=== PATIENT | male | born 1935 | race Caucasian/White ===

== ENCOUNTER 2025-05-02 14:05 | Inpatient (IN) | payer OTHER, SELFPAY ==
[2025-05-01] VITALS (7 sets, daily range): BP systolic 144–170; BP diastolic 64–109; BMI 27.8; BMI 28.9
--- NOTE | 2025-05-01 08:27 | ED.GENMED ---
History of Present Illness
General
Chief Complaint: Fall
Time Seen by Provider: 05/01/25 08:20
History of Present Illness
History of Present Illness:
89-year-old male with history of hypertension, hyperlipidemia, and dementia presents to the emergency department for evaluation of multiple falls over the past 48 hours. On initial evaluation details of the falls are not immediately known and
patient can provide no history secondary to dementia. He denies any pain or complaints at this time. He appears to be in no distress but does appear grossly pale.
Past History
Past History
ED Past Medical History: HTN, Hypercholesterolemia and Other (Skin cancer, prostate cancer)
Social History
Tobacco: Non-smoker
Review of Systems
Review of Systems
Allergies reviewed?: Yes
All Other Systems: ROS reviewed and negative except as documented in HPI and ROS
Phy Exam
Physical Exam
Physical Exam:
GEN: Well appearing, NAD, WDWN, generally past
HEENT: Oral mucosa moist, no scleral icterus
Cardiac: Regular rate and rhythm, no murmur
Lung: No respiratory distress, no tachypnea, lungs clear to auscultation bilaterally
MSK: No gross deformity or injuries
Skin: Good color, no pallor or jaundice, no rashes
Neuro: Alert, pleasantly confused, moves all extremities freely, follows commands
Psych: Calm, cooperative
Course
Orders/Labs/Results
Orders:
Orders
05/01/25 08:22
EKG [Electrocardiogram (*1)] Urgent
Reason for Study: Abnormal EKG
05/01/25 08:23
EKG- Treatment ONCE
05/01/25 08:25
CT Head W/o Iv Contrast Urgent
Comment:
Reason For Exam: frequent falls, on Eliquis
05/01/25 08:29
Type And Crossmatch [Type+Screen] Urgent
Complete Blood Count/With Diff Urgent
Comprehensive Metabolic Panel Urgent
05/01/25 09:27
Urinalysis Reflex To Culture Urgent
Date Specimen was Collected: 05/01/25
Time Specimen was Collected: 09:07
Urine Microscopic Reflex Cult Urgent
Urine Culture Urgent
MAGGIE Source: U
Specimen Description:
Date Specimen was Collected: 05/01/25
Time Specimen was Collected: 09:07
05/01/25 10:53
CefTRIAXone [Rocephin] 1,000 mg IV NOW STA
05/01/25 13:13
Admit/Transfer Patient As Directed
Co-Sign Provider:
Level of Care: Observation services
Assign to:: Medical/Surgical
Physician / Group: Pau Khan
Diagnosis: Ambulatory Dysfunction Dementia possible UTI
05/01/25 13:14
PRN Pain Medication Management As Directed
May give lesser potent ordered pain med per pt: Yes
preference::
Protocol:: Medication orders for pain may be administered in a
manner that supports deferring to patient preference
when the pt is:
- Requesting an ordered lesser potent pain medication.
Least to most potent pain medications are defined
as: acetaminophen < NSAID < tramadol < opioids
(morphine, oxycodone, hydromorphone).
- Requesting a lesser dose of the same medication IF
ORDERED.
- Requesting a less intrusive route of administration
if both routes are prescribed by the provider (PO <
IV).
05/01/25 13:18
Code Status As Directed
Resuscitation Status: Do not resuscitate
Reached after discussion with pt or family/Healthcare POA: Yes
DNR Bracelet Application ONCE
Abnormal Lab Results
05/01/25 05/01/25
08:29 09:27
RBC 4.08 L 10^6/uL
(4.70-6.10)
MCV 96.8 H fL
(80.0-94.0)
MCH 32.4 H pg
(27.0-31.0)
Absolute Lymphs (auto) 1.1 L 10^3/uL
(1.2-3.4)
Absolute Monos (auto) 0.8 H 10^3/uL
(0.1-0.6)
Lymphocytes % 14.0 L %
(20.5-51.1)
Monocytes % 9.5 H %
(1.7-9.3)
BUN 21 H mg/dl
(9-20)
Glucose 115 H mg/dl
(70-99)
Urine Nitrite (Reflex) Positive A
(Negative)
Leukocyte Esterase Rfl 1+ A
(Negative)
Urine Bacteria (Reflex) Moderate A
(Negative)
Urine Albumin (Reflex) 1+ A
(Neg - Trace)
05/01/25 08:29
05/01/25 08:29
Vital Signs
Initial and Last Documented VS:
Initial Vital Signs
Temp Pulse Resp BP Pulse Ox
98.3 F 64 95 170/84 93
05/01/25 08:22 05/01/25 08:22 05/01/25 08:22 05/01/25 08:22 05/01/25 08:22
Last Documented Vital Signs
Temp Pulse Resp BP Pulse Ox
98.3 F 63 16 168/64 94
05/01/25 08:22 05/01/25 13:33 05/01/25 13:33 05/01/25 13:00 05/01/25 12:00
MDM/Problems Addressed
MDM/Problems Addressed:
Patient is profoundly weak and has difficulty rising from a seated position and difficulty walking without assistance. He does have nitrite positive urine with large bacteria suggesting UTI despite lack of leukocytes. Will treat empirically to the
hospitalist service for for further management
Comment
Comment:
EKG independently interpreted by me shows normal sinus rhythm at a rate of 60 with diffuse flattening, new compared to EKG from 2017
*Pulse Oximetry
Patient hypoxic: no
*Critical Care Note
Total Time (30-74mins, 75-104mins- exclusive of procedures): Not Applicable
ED Attending Note
-
Portions of this chart may have been created with voice recognition software.� Occasional wrong word or��sound alike� substitutions may have occurred due to the inherent limitations of voice recognition software.
Discharge Plan
Departure
Patient Disposition: Admit
Date of Disposition: 05/01/25
Time of Disposition: 11:02
Admit to: Med/Surg
Presentation/result/management discussed w/ accepting MD/DO: Hospitalist
Discharge Problem:
Urinary tract infection, Generalized weakness
Interventions
Interventions:
*Risk Screen - Suicide Last Done: 05/01/25 11:11
*General Assessment Last Done: 05/01/25 08:31
*Neglect/Abuse Screening Last Done: 05/01/25 11:11
*ED COVID-19 Vaccine History Last Done: 05/01/25 11:10
[2025-05-01 08:58] LABS: ALT (SGPT) 24 U/L (0-50); AST (SGOT) 31 U/L (17-59); Albumin 4.2 g/dl (3.5-5.0); Alkaline Phosphatase 68 U/L (38-126); Blood Urea Nitrogen 21 mg/dl (9-20); Calcium 9.9 mg/dl (8.4-10.2); Carbon Dioxide 29 mmol/L (22-30); Chloride 106 mmol/L (98-107); Estimated Creatinine Clearance 48 ml/min; Glucose 115 mg/dl (70-99); Potassium 4.3 mmol/L (3.5-5.1); Sodium 140 mmol/L (135-145); Total Protein 7.2 g/dl (6.3-8.2); eGFR > 60.00
[2025-05-01 08:59] LABS: Hematocrit 39.5 % (39.0-52.0); Hemoglobin 13.2 g/dL (13.0-18.0); Mean Corp Hgb Conc. 33.4 g/dL (33.0-37.0); Mean Corpuscular Volume 96.8 fL (80.0-94.0); Nucleated Red Blood Cells % 0 % (-); Platelet Count 203 10^3/uL (130-400); Red Cell Dist. Width 12.9 % (11.5-14.5)
[2025-05-01 09:53] LABS: Urine Character Cloudy (Clear)
[2025-05-01 10:50] LABS: Urine Red Blood Cell 0-2 /HPF (0-2)
[2025-05-01] MEDS: ROCEPHIN 1000 MG IV (11:05)
--- NOTE | 2025-05-01 11:05 | HPS.HSE ---
Family Physician
-
Family Physician: Sher Ortega
Chief Complaint
-
weakness
History of Present Illness
89M HTN HLD Dementia p/w ambulatory dysfunction approx 2 falls last 48h, unwitnessed, found on the floor by . Prompted to visit ED when patient was unable to get up. Denied head trauma. AOx2 disoriented to baseline, baseline as per patient's
, diagnosed with dementia approx 5 [address] ago[address] not drive. Denies fever chills sob constipation diarrhea pain. CT Head noted no acute abn's. VSS on room air. Urinalysis suggestive of UTI though patient denies urinary symptoms. Patient
drinks a can of beer daily and has never required treatment for Alcohol withdrawal as per .
Medical History
Past Medical History
Past Medical History: Reports Other (as above)
Past Surgical History: Reports Other (as above)
Social History
Tobacco: Non-smoker
Alcohol: Daily
Drug: None
Personal:
Living: With Family
Employment: Retired
Family History
Family History: Not pertinent (reviewed)
Allergies / Home Medications
Allergies reflects when Allergies were last updated in [email or web address].
Home Medications with original date entered in [email or web address]
Allergy/Medication List:
Allergies
Allergy/AdvReac Type Severity Reaction Status Date / Time
[place] nut Allergy swelling/hi Verified 05/01/25 16:54
ves
Home Medications
apixaban 5 mg tablet (Eliquis) 5 mg PO BID Blood Clot Prevention/Tx 05/01/25
ascorbic acid (vitamin C) 500 mg tablet 500 mg PO DAILY Supplement 05/01/25
calcium carbonate 500 mg PO DAILY Supplement 05/01/25
cholecalciferol (vitamin D3) 25 mcg (1,000 unit) tablet 25 mcg PO DAILY Supplement 05/01/25
coenzyme Q10 100 mg tablet 100 mg PO DAILY Supplement 05/01/25
cyanocobalamin (vitamin B-12) 500 mcg tablet 500 mcg PO DAILY Supplement 05/01/25
lovastatin 40 mg tablet 40 mg PO QPM High Cholesterol 05/01/25
lutein 20 mg tablet 20 mg PO DAILY Supplement 05/01/25
magnesium oxide 500 mg PO HSPRN PRN sleep 05/01/25
memantine 10 mg tablet 10 mg PO BID Neurological Condition 05/01/25
therapeutic multivitamin 1 tab PO DAILY Supplement 05/01/25
turmeric 500 mg-black pepper extract 3 mg capsule 1 cap PO DAILY Supplement 05/01/25
vitamin B complex 1 tab PO DAILY Supplement 05/01/25
Review of Systems
-
A 12 point ROS was completed and negative except as noted: Yes
Constitutional: Reports Other (as below)
Physical Exam
Vital Signs
Vital Signs
Temp Pulse Resp BP Pulse Ox
98.3 F 61 17 170/84 94
05/01/25 08:22 05/01/25 08:30 05/01/25 08:30 05/01/25 08:23 05/01/25 08:30
Physical Exam
General: Other (as below)
Laboratory Results
-
05/01/25 08:29
05/01/25 08:29
Laboratory Results
Total Bilirubin 0.6 mg/dl (0.2-1.3) 05/01/25 08:29
AST 31 U/L (17-59) 05/01/25 08:29
ALT 24 U/L (0-50) 05/01/25 08:29
Alkaline Phosphatase 68 U/L (38-126) 05/01/25 08:29
Impression/Plan
-
ROS
General: Denies fever chills night sweats unexpected weight loss
Neuro: Denies seizure shaking loss of consciousness dizziness vertigo
Psych: denies depression hallucinations confusion manic episodes
Endocrine: Denies polyuria polydipsia polyphagia heat/cold intolerance
HEENT: Denies blindness visual disturbances epistaxis
Pulmonary: denies coughing hemoptysis sneezing sob dyspnea on exertion
Cardiovascular: denies chest pain palpitations leg swelling
Hematology: denies signs symptoms of anemia easy bruising/bleeding
Gastrointestinal: denies nausea vomiting diarrhea constipation hematemesis hematochezia melena
Genito-Urinary: denies retention incontinence dysuria
Musculoskeletal: denies joint pain reports weakness unable to stand
Dermatology: denies rash laceration bruising
Physical Exam
General: No pallor, cyanosis, or jaundice.
HEENT: Throat clear. PERRLA EOMI Normocephalic atraumatic Hard of Hearing
NECK: Supple. No JVD Carotid Bruits
RESPIRATORY: Lungs clear to auscultation. No crackles wheezes stridor
CVS: S1, S2 normal. RRR. No murmur, rub or gallop.
ABDOMEN: Soft, non-tender. No distension. BS+/normal.
EXTREMITIES: No peripheral cyanosis or edema. Strength 4/5 lower ext's b/l, Lower ext's equal length able to lift legs off bed without issues/pain
SCHOOL LABORATORY TECHNICIAN: AOx2 disoriented to time
IMPRESSION:
89M pAfib Eliquis HTN HLD Dementia Daily ETOH use (1 can of beer per day) no hx withdrawal AOx2 baseline p/w progressive ambulatory dysfunction 48H w falls, unwitnessed, denies head trauma, prompted to visit ED when patient was unable to get up on
his own. Urinalysis suggests UTI though patient denies urinary symptoms.
PLAN:
#Progressive Ambulatory Dysfunction/Falls
#Possible UTI
Med/surg observation
cont ceftriaxone for possible UTI
follow urine culture
PT/OT eval
orthostatic vitals
Fall precautions
#pAfib
Currently NSR
not on rate control medication at home
hold home Eliquis for now given falls
#Daily ETOH use, no hx ETOH withdrawal
monitor MSAS scores for now, caution when considering using Ativan given known Dementia
#HTN
not on antihypertensives at home
monitor BP for now
with dementia and falls would not treat aggressively
#HLD
cont home statin
#Dementia
cont home Memantine
Seroquel HSPRN agitation/insomnia
DVT ppx Lovenox
DNR
Discussed with patient, patient's Martha, and patient's daughter Abi
I spent a total of 75 minutes with the patient or on the floor. More than 50% of this time involved counseling and coordination of care.
--- NOTE | 2025-05-01 14:05 | CM ---
CM reviewed chart and met with pt and family bedside in ED. Lives with his in 1 story home, 3 NONA.
Independent in ADLs, personal care and ambulation at baseline. has been encouraging him to use walker but still ambulates independently. Also has shower chair.
GREGORY reviewed and signed.
Confirms prescription coverage.
PCP: Sher Ortega
Pharmacy: [facility]
No hx VN or SNF
CM will continue to follow for all discharge planning needs.
[2025-05-01] MEDS: NON-FORMULARY ITEM 40 MG PO (18:12)
[2025-05-01] MEDS: LOVENOX 40 MG SC (18:13)
[2025-05-01] MEDS: NAMENDA 10 MG PO (20:39)
[2025-05-02] VITALS (8 sets, daily range): BP systolic 144–179; BP diastolic 63–114; PULSE 57–80; O2SAT 92–93
--- NOTE | 2025-05-02 07:04 | W.PN.HOSP.TC ---
Today's Communication/Plan
-
IVF bolus, abd binder, TEDs
cont abx, follow urine culture
PT/OT
discharge planning SNF rehab
Assessment / Plan
Assessment / Plan
Physical Exam
General: No pallor, cyanosis, or jaundice.
HEENT: Throat clear. PERRLA EOMI Normocephalic atraumatic Hard of Hearing
NECK: Supple. No JVD Carotid Bruits
RESPIRATORY: Lungs clear to auscultation. No crackles wheezes stridor
CVS: S1, S2 normal. RRR. No murmur, rub or gallop.
ABDOMEN: Soft, non-tender. No distension. BS+/normal.
EXTREMITIES: No peripheral cyanosis or edema. Strength 4/5 lower ext's b/l, Lower ext's equal length able to lift legs off bed without issues/pain
DIRECTOR SCRIPT: AOx2 disoriented to time
IMPRESSION:
89M pAfib Eliquis HTN HLD Dementia Daily ETOH use (1 can of beer per day) no hx withdrawal AOx2 baseline p/w progressive ambulatory dysfunction 48H w falls, unwitnessed, denies head trauma, prompted to visit ED when patient was unable to get up on
his own. Urinalysis suggests UTI though patient denies urinary symptoms.
PLAN:
#Progressive Ambulatory Dysfunction/Falls
#Possible UTI
#Symptomatic Orthostatic Hypotension
Med/surg observation
cont ceftriaxone for possible UTI
follow urine culture
PT/OT eval appreciated SNF rehab
orthostatic vitals
Abd Binder, TEDs, IVF bolus
Fall precautions
#pAfib
Currently NSR
not on rate control medication at home
hold home Eliquis for now given falls
#Daily ETOH use, no hx ETOH withdrawal
monitor MSAS scores for now, caution when considering using Ativan given known Dementia
ETOH cessation/abstinence advised
#HTN
low dose amlodipine started 2.5 mg daily
with dementia, symptomatic orthostatic hypotension, falls would not treat aggressively
#HLD
cont home statin
#Dementia
cont home Memantine
Seroquel HSPRN agitation/insomnia
DVT ppx Lovenox
DNR
Discussed with patient, patient's Martha, patient's daughter Abi, and patient's family friend Elda
I spent a total of 45 minutes with the patient or on the floor. More than 50% of this time involved counseling and coordination of care.
Anticipated Discharge: 24 - 48 hours
Subjective/Interval History
-
Date of Service: May 02, 2025
symptomatic orthostatic hypotension noted during PT/OT evaluations. Patient otherwise no acute distress at rest sitting up comfortably in bed. Martha, daughter Abi, and family friend Elda present during evaluation.
Objective Data
-
Labs:
Laboratory Results
05/02/25
06:50
WBC Pending
Hgb Pending
Hct Pending
Plt Count Pending
Sodium Pending
Potassium Pending
Chloride Pending
Carbon Dioxide Pending
BUN Pending
Creatinine Pending
Glucose Pending
Calcium Pending
Vital Signs:
Vital Signs
Temp Pulse Resp BP Pulse Ox
98.3 F 59 18 145/73 95
05/01/25 23:00 05/01/25 23:00 05/01/25 23:00 05/01/25 23:00 05/01/25 23:00
I&O
05/01/25 05/02/25 05/03/25
06:59 06:59 06:59
Intake Total 480 / 480
Balance 480 / 480
[2025-05-02 07:31] LABS: Hematocrit 36.6 % (39.0-52.0); Hemoglobin 12.4 g/dL (13.0-18.0); Mean Corp Hgb Conc. 33.9 g/dL (33.0-37.0); Mean Corpuscular Volume 95.3 fL (80.0-94.0); Platelet Count 188 10^3/uL (130-400); Red Cell Dist. Width 12.9 % (11.5-14.5)
[2025-05-02 07:59] LABS: Blood Urea Nitrogen 19 mg/dl (9-20); Calcium 8.9 mg/dl (8.4-10.2); Carbon Dioxide 28 mmol/L (22-30); Chloride 108 mmol/L (98-107); Estimated Creatinine Clearance 45 ml/min; Glucose 112 mg/dl (70-99); Magnesium 2.1 mg/dl (1.6-2.3); Potassium 4.4 mmol/L (3.5-5.1); Sodium 139 mmol/L (135-145); eGFR > 60.00
[2025-05-02 08:11] LABS: Vitamin D, 25-OH*** 47.8 ng/mL (30-80)
[2025-05-02] MEDS: VITAMIN B-12 500 MCG PO (08:22)
[2025-05-02] MEDS: THERAGRAN 1 TABLET PO (08:22)
[2025-05-02] MEDS: NAMENDA 10 MG PO ×2 (08:22→20:11)
[2025-05-02] MEDS: VITAMIN C 500 MG PO (08:22)
[2025-05-02] MEDS: VITAMIN D3 (cholecalciferol) 25 MCG PO (08:22)
[2025-05-02] MEDS: OSCAL CAL 500 500 MG PO (08:22)
[2025-05-02] MEDS: STERILE WATER FOR INJECTION 10 ML IV (10:33)
[2025-05-02] MEDS: ROCEPHIN 1000 MG IV (10:33)
--- NOTE | 2025-05-02 11:25 | CM ---
CM met with Kaveh, his , and daughter this AM to discuss discharge planning options.
Kaveh has dementia with a very happy demeanor. He has been falling quite often at home; son-in-law has to come to the home to pick him up off the floor and/or the toilet quite often.
Family is interested in admission to [facility] with likely plan for LTC. Advised family that application will likely be required. Daughter will go to [facility] to obtain application.
Second option is [facility].
Plan: CM to make referrals to requested SNF facilities.
[2025-05-02] MEDS: NORVASC 2.5 MG PO (12:27)
[2025-05-02] MEDS: NSS 500 IV (12:27)
[2025-05-02] MEDS: LOVENOX 40 MG SC (17:31)
[2025-05-02] MEDS: NON-FORMULARY ITEM 40 MG PO (17:32)
[2025-05-02] MEDS: SEROQUEL 25 MG PO (19:51)
[2025-05-03 03:56] VITALS: BP 187/89
--- NOTE | 2025-05-03 06:12 | PTCARENOTE ---
Patient restless overnight. Continued removal of quality assurance monitor despite repeated education regarding need for for monitoring. Frequent requests for ambulation to bathroom for urination. Bladder scan performed secondary to frequent urination,
results in 320ml. Patient offered Tylenol for expressed pain, medication was declined by patient. Appears to rest comfortably after approximately 0400am.
--- NOTE | 2025-05-03 06:59 | W.PN.HOSP.TC ---
Today's Communication/Plan
-
PT/OT
blood pressure control
discharge planning SNF rehab
Assessment / Plan
Assessment / Plan
Physical Exam
General: No pallor, cyanosis, or jaundice.
HEENT: Throat clear. PERRLA EOMI Normocephalic atraumatic Hard of Hearing
NECK: Supple. No JVD Carotid Bruits
RESPIRATORY: Lungs clear to auscultation. No crackles wheezes stridor
CVS: S1, S2 normal. RRR. No murmur, rub or gallop.
ABDOMEN: Soft, non-tender. No distension. BS+/normal.
EXTREMITIES: No peripheral cyanosis or edema. Strength 4/5 lower ext's b/l, Lower ext's equal length able to lift legs off bed without issues/pain
CHIEF UNIT FORESTER: AOx2 disoriented to time
IMPRESSION:
89M pAfib Eliquis HTN HLD Dementia Daily ETOH use (1 can of beer per day) no hx withdrawal AOx2 baseline p/w progressive ambulatory dysfunction 48H w falls, unwitnessed, denies head trauma, prompted to visit ED when patient was unable to get up on
his own. Urinalysis suggests UTI though patient denies urinary symptoms.
PLAN:
#Progressive Ambulatory Dysfunction/Falls
#Possible UTI
#Symptomatic Orthostatic Hypotension
Med/surg observation
cont ceftriaxone for possible UTI
follow urine culture
PT/OT eval appreciated SNF rehab
orthostatic vitals
Abd Binder, TEDs, IVF bolus
Fall precautions
#pAfib
Currently NSR
not on rate control medication at home
hold home Eliquis for now given falls
#Daily ETOH use, no hx ETOH withdrawal
monitor MSAS scores for now, caution when considering using Ativan given known Dementia
ETOH cessation/abstinence advised
#HTN
low dose amlodipine started 2.5 mg daily
with dementia, symptomatic orthostatic hypotension, falls would not treat aggressively
#HLD
cont home statin
#Dementia
cont home Memantine
Seroquel HSPRN agitation/insomnia
DVT ppx Lovenox
DNR
Discussed with patient, patient's Martha, patient's daughter Abi, and patient's family friend Elda
I spent a total of 45 minutes with the patient or on the floor. More than 50% of this time involved counseling and coordination of care.
Anticipated Discharge: 24 - 48 hours
Subjective/Interval History
-
Date of Service: May 03, 2025
No acute distress, overall reports feeling well, denies new acute issues at this time. Martha present during evaluation.
Objective Data
-
Labs:
Laboratory Results
05/03/25
06:55
WBC Pending
Hgb Pending
Hct Pending
Plt Count Pending
Sodium Pending
Potassium Pending
Chloride Pending
Carbon Dioxide Pending
BUN Pending
Creatinine Pending
Glucose Pending
Calcium Pending
Vital Signs:
Vital Signs
Temp Pulse Resp BP Pulse Ox
97.4 F 57 14 187/89 96
05/03/25 03:56 05/03/25 03:56 05/03/25 03:56 05/03/25 03:56 05/03/25 03:56
I&O
05/01/25 05/02/25 05/03/25
06:59 06:59 06:59
Intake Total 480 / 480 940 / 940
Output Total 1075 / 1075
Balance 480 / 480 -135 / -135
[2025-05-03 07:31] LABS: Hematocrit 38.0 % (39.0-52.0); Hemoglobin 12.8 g/dL (13.0-18.0); Mean Corp Hgb Conc. 33.7 g/dL (33.0-37.0); Mean Corpuscular Volume 95.7 fL (80.0-94.0); Platelet Count 204 10^3/uL (130-400); Red Cell Dist. Width 12.9 % (11.5-14.5)
[2025-05-03 08:16] LABS: Blood Urea Nitrogen 18 mg/dl (9-20); Calcium 9.5 mg/dl (8.4-10.2); Carbon Dioxide 27 mmol/L (22-30); Chloride 110 mmol/L (98-107); Estimated Creatinine Clearance 49 ml/min; Glucose 114 mg/dl (70-99); Magnesium 2.2 mg/dl (1.6-2.3); Potassium 4.4 mmol/L (3.5-5.1); Sodium 141 mmol/L (135-145); eGFR > 60.00
[2025-05-03] MEDS: VITAMIN D3 (cholecalciferol) 25 MCG PO (08:51)
[2025-05-03] MEDS: NAMENDA 10 MG PO ×2 (08:51→19:29)
[2025-05-03] MEDS: THERAGRAN 1 TABLET PO (08:51)
[2025-05-03] MEDS: OSCAL CAL 500 500 MG PO (08:52)
[2025-05-03] MEDS: NORVASC 2.5 MG PO (08:52)
[2025-05-03] MEDS: VITAMIN C 500 MG PO (08:52)
[2025-05-03] MEDS: VITAMIN B-12 500 MCG PO (08:52)
[2025-05-03 08:54] VITALS: BP 144/61
--- NOTE | 2025-05-03 09:46 | CM ---
Addendum entered by Daya Yip 05/03/25 14:54:
Spouse aware of beds available. no decision made yet. Spouse is aware anticipated dc is tomorrow and insurance authorization needs to be completed.
Addendum entered by Daya Yip 05/03/25 14:28:
TC to patient spouse re bed availability, no VM to leave a message. will try again later.
Addendum entered by Daya Yip 05/03/25 10:34:
[facility] also added per request.
Addendum entered by Daya Yip 05/03/25 10:12:
Spoke with spouse bedside, patient sleeping.
Additional referrals sent to [facility] and [facility] for STR. Plan is not for LTC at this time
Original Note:
Spoke with Bruce from [facility], no short term rehab beds available. Patient may be appropriate for Memory care unit, would need to fill out application.
Left VN karli Gordon at [facility], await TCB.
[2025-05-03] MEDS: ROCEPHIN 1000 MG IV (10:56)
[2025-05-03] MEDS: STERILE WATER FOR INJECTION 10 ML IV (10:56)
[2025-05-03 11:14] VITALS: BP 169/81
[2025-05-03 15:33] LABS: Folate > 20.0 ng/ml (2.76-20); Vitamin B12 > 1000 pg/ml (239-931)
[2025-05-03 16:00] VITALS: BP 177/71
[2025-05-03] MEDS: LOVENOX 40 MG SC (17:20)
[2025-05-03] MEDS: NON-FORMULARY ITEM 1 MG PO (17:21)
[2025-05-03] MEDS: SEROQUEL 25 MG PO (19:29)
[2025-05-03 23:39] VITALS: BP 156/76
[2025-05-04 06:49] LABS: Hematocrit 37.6 % (39.0-52.0); Hemoglobin 12.8 g/dL (13.0-18.0); Mean Corp Hgb Conc. 34.0 g/dL (33.0-37.0); Mean Corpuscular Volume 95.2 fL (80.0-94.0); Platelet Count 201 10^3/uL (130-400); Red Cell Dist. Width 13.1 % (11.5-14.5)
[2025-05-04 07:13] LABS: Blood Urea Nitrogen 17 mg/dl (9-20); Calcium 9.0 mg/dl (8.4-10.2); Carbon Dioxide 26 mmol/L (22-30); Chloride 109 mmol/L (98-107); Estimated Creatinine Clearance 49 ml/min; Glucose 108 mg/dl (70-99); Magnesium 2.0 mg/dl (1.6-2.3); Potassium 4.2 mmol/L (3.5-5.1); Sodium 139 mmol/L (135-145); eGFR > 60.00
--- NOTE | 2025-05-04 07:15 | W.PN.HOSP.TC ---
Today's Communication/Plan
-
monitor orthostatic vitals
PT/OT
dc abx, UTI ruled out
dc MSAS monitoring, no significant withdrawal symptoms noted
Discharge planning SNF rehab
Assessment / Plan
Assessment / Plan
Physical Exam
General: No pallor, cyanosis, or jaundice.
HEENT: Throat clear. PERRLA EOMI Normocephalic atraumatic Hard of Hearing
NECK: Supple. No JVD Carotid Bruits
RESPIRATORY: Lungs clear to auscultation. No crackles wheezes stridor
CVS: S1, S2 normal. RRR. No murmur, rub or gallop.
ABDOMEN: Soft, non-tender. No distension. BS+/normal.
EXTREMITIES: No peripheral cyanosis or edema. Strength 4/5 lower ext's b/l, Lower ext's equal length able to lift legs off bed without issues/pain
ENERGY PROJECTS LEAD: AOx2 disoriented to time
IMPRESSION:
89M pAfib Eliquis HTN HLD Dementia Daily ETOH use (1 can of beer per day) no hx withdrawal AOx2 baseline p/w progressive ambulatory dysfunction 48H w falls, unwitnessed, denies head trauma, prompted to visit ED when patient was unable to get up on
his own. Urinalysis suggests UTI though patient denies urinary symptoms.
PLAN:
#Progressive Ambulatory Dysfunction/Falls
#Possible UTI ruled out
#Symptomatic Orthostatic Hypotension
Med/surg admit d/t persistent symptomatic orthostatic hypotension
urine culture no significant growth noted, empiric ceftriaxone discontinued
PT/OT eval appreciated SNF rehab
orthostatic vitals
Abd Binder, TEDs, IVF bolus prn
Fall precautions
Orthostatic hypotension persists, physical deconditioning contributing
#pAfib
Currently NSR
not on rate control medication at home
hold home Eliquis for now given falls
#Daily ETOH use, no hx ETOH withdrawal
No significant withdrawal noted during stay, ok to dc MSAS protocol
ETOH cessation/abstinence advised
#HTN
low dose amlodipine started 2.5 mg daily titrated up to 5 mg daily
with dementia, symptomatic orthostatic hypotension, falls, would not treat HTN aggressively
#HLD
cont home statin
#Dementia
cont home Memantine
Seroquel HSPRN agitation/insomnia
DVT ppx Lovenox
DNR
Discussed with patient, patient's Martha, patient's daughter Abi, and patient's family friend Elda
I spent a total of 45 minutes with the patient or on the floor. More than 50% of this time involved counseling and coordination of care.
Anticipated Discharge: Within 24 hours
Subjective/Interval History
-
Date of Service: May 04, 2025
No acute distress, sitting up comfortably in chair, orthostatic hypotension persists with associate dizziness lightheadedness. Resting blood pressure control otherwise improved at this time.
Objective Data
-
Labs:
Laboratory Results
05/04/25
06:13
WBC 5.4
Hgb 12.8 L
Hct 37.6 L
Plt Count 201
Sodium 139
Potassium 4.2
Chloride 109 H
Carbon Dioxide 26
BUN 17
Creatinine 1.0
Glucose 108 H
Calcium 9.0
Vital Signs:
Vital Signs
Temp Pulse Resp BP Pulse Ox
97.8 F 62 16 156/76 95
05/03/25 23:39 05/03/25 23:39 05/03/25 23:39 05/03/25 23:39 05/03/25 23:39
I&O
05/03/25 05/04/25 05/05/25
06:59 06:59 06:59
Intake Total 940 / 940
Output Total 1075 / 1075 375 / 375
Balance -135 / -135 -375 / -375
[2025-05-04 07:30] VITALS: BP 154/59
--- NOTE | 2025-05-04 08:45 | CM ---
TC from spouse re concerns patient is not ready for d/c. She spoke with her Friend who is a nurse and they do not feel the patient has been up walking enough to be transferred from the hospital. Spouse and friend would like to meet with CM in room
at 10:30 am. if available. This CM reached out to spouse via phone and explained the reason to be transferred to skilled rehab is to increase patients ability to ambulate and patient would receive therapy more frequently in a skilled facility. CM
explained patient has not yet been d/c, but it is anticipated he shoud be ready today ir medically cleared. If agreeable to [facility], auth will need to be initiated. CM also discussed if she does not feel the patient is medically sable for d/c, she
would need to discuss that with the MD. CM covering today updated.
Spouse, Martha cell#[phone]
[2025-05-04] MEDS: VITAMIN D3 (cholecalciferol) 25 MCG PO (09:22)
[2025-05-04] MEDS: THERAGRAN 1 TABLET PO (09:22)
[2025-05-04] MEDS: VITAMIN C 500 MG PO (09:22)
[2025-05-04] MEDS: NAMENDA 10 MG PO ×2 (09:22→20:45)
[2025-05-04] MEDS: NORVASC 5 MG PO (09:22)
[2025-05-04] MEDS: OSCAL CAL 500 500 MG PO (09:23)
[2025-05-04] MEDS: VITAMIN B-12 500 MCG PO (09:23)
[2025-05-04] MEDS: STERILE WATER FOR INJECTION 10 ML IV (09:32)
[2025-05-04] MEDS: ROCEPHIN 1000 MG IV (09:32)
[2025-05-04 09:46] VITALS: BP 101/68; BP 116/67; BP 133/66; BP 146/72; PULSE 66; PULSE 67; PULSE 87; O2SAT 94
--- NOTE | 2025-05-04 11:42 | CM ---
Addendum entered by Daya Yip 05/04/25 16:48:
Insurance auth initiated- Approved skilled rehab at [facility]
Approved 5 days skilled rehab
start date 05/05/25, NRD 05/09/25
Auth# [id number]
Updates to P# [phone]
[facility]ulance with [facility] auth# [id number]
Addendum entered by Daya Yip 05/04/25 13:56:
Per MD, will hold d/c for today.
[facility] liaison updated.
Original Note:
Patient accepted at [facility] for skilled rehab, needs insurance auth.
Spoke with family bedside, they wish to speak with MD.
IMM completed.
Await updated therapy notes.
--- NOTE | 2025-05-04 11:58 | PN.CDI ---
CDI
- -
CDI:
Physician Documentation Request
Admit Date: 05/02/25 14:05
Dear Doctor Bill,
Progress note states possible UTI, cont Ceftriaxone.
Ceftriaxone note given 05/04.
Urine culture states 'mixed nat present, probable contamination'
Please clarify the following:
____ - UTI is present
____ - UTI was ruled out
____ - UTI is still a likely, suspected, probable diagnosis
____ - Other
Use of terms such as suspected, likely, concern for, or probable (associated with a specific diagnosis that is being evaluated, monitored, or treated as if it exists) are acceptable and can be coded in the inpatient setting, when documented at the
time of discharge.
Thank you,
Clare James RN, BSN
CDI Specialist
tiger text
Please use your independent medical judgment in providing your response.
[2025-05-04] MEDS: NSS 500 IV (11:59)
[2025-05-04 13:02] VITALS: BP 140/59; BP 148/68; PULSE 66; O2SAT 95
[2025-05-04 15:25] VITALS: BP 157/71
[2025-05-04] MEDS: LOVENOX 40 MG SC (18:30)
[2025-05-04] MEDS: NON-FORMULARY ITEM 40 MG PO (18:31)
[2025-05-04] MEDS: SEROQUEL 25 MG PO (20:45)
[2025-05-04 23:00] VITALS: BP 177/84
[2025-05-05 07:00] VITALS: BP 163/74
--- NOTE | 2025-05-05 07:08 | W.PN.HOSP.TC ---
Today's Communication/Plan
-
Hold discharge for now given symptomatic orthostatic hypotension persists
Amlodipine and prn seroquel discontinued (both possibly contributing to orthostatic hypotension)
1:1 prn, avoid restraints, avoid sedatives as possible (all sedatives may exaberate orthostatic hypotension)
Assessment / Plan
Assessment / Plan
Physical Exam
General: No pallor, cyanosis, or jaundice.
HEENT: Throat clear. PERRLA EOMI Normocephalic atraumatic Hard of Hearing
NECK: Supple. No JVD Carotid Bruits
RESPIRATORY: Lungs clear to auscultation. No crackles wheezes stridor
CVS: S1, S2 normal. RRR. No murmur, rub or gallop.
ABDOMEN: Soft, non-tender. No distension. BS+/normal.
EXTREMITIES: No peripheral cyanosis or edema. Strength 4/5 lower ext's b/l, Lower ext's equal length able to lift legs off bed without issues/pain
VISUAL MERCHANDISING SPECIALIST: AOx2 disoriented to time
IMPRESSION:
89M pAfib Eliquis HTN HLD Dementia Daily ETOH use (1 can of beer per day) no hx withdrawal AOx2 baseline p/w progressive ambulatory dysfunction 48H w falls, unwitnessed, denies head trauma, prompted to visit ED when patient was unable to get up on
his own. Urinalysis suggests UTI though patient denies urinary symptoms.
PLAN:
#Progressive Ambulatory Dysfunction/Falls
#Possible UTI ruled out
#Symptomatic Orthostatic Hypotension
Med/surg admit d/t persistent symptomatic orthostatic hypotension
urine culture no significant growth noted, empiric ceftriaxone discontinued
PT/OT eval appreciated SNF rehab
monitor orthostatic vitals BID
Abd Binder, TEDs, IVF bolus prn
Fall precautions
Orthostatic hypotension persists, physical deconditioning likely contributing
Check AM Cortisol
#Abnormal EKG 05/05/25 NSR but new T wave abn's lateral leads
chest pain free
follow up AM EKG for changes/stability
#pAfib
Currently NSR
not on rate control medication at home
hold home Eliquis for now given falls
#Daily ETOH use, no hx ETOH withdrawal
No significant withdrawal noted during stay, ok to dc MSAS protocol
ETOH cessation/abstinence advised
#HTN
with dementia, symptomatic orthostatic hypotension, falls, would not treat HTN aggressively
started amlodipine titrated up to 5 mg daily, since discontinued d/t persistent symptomatic orthostatic hypotension
#HLD
cont home statin
#Dementia
cont home Memantine
Seroquel HSPRN agitation/insomnia discontinued given persistent symptomatic orthostatic hypotension as above
1:1 prn, avoid restraints, avoid sedatives as possible (all sedatives may exacerbate orthostatic hypotension)
DVT ppx Lovenox
DNR
Discussed with patient and patient's Martha
I spent a total of 50 minutes with the patient or on the floor. More than 50% of this time involved counseling and coordination of care.
Anticipated Discharge: 24 - 48 hours
Subjective/Interval History
-
Date of Service: May 05, 2025
Orthostatic hypotension persists. Dizzy on sitting up. Resting hypertension also persists.
Objective Data
-
Labs:
Laboratory Results
05/05/25
06:15
WBC Pending
Hgb Pending
Hct Pending
Plt Count Pending
Sodium Pending
Potassium Pending
Chloride Pending
Carbon Dioxide Pending
BUN Pending
Creatinine Pending
Glucose Pending
Calcium Pending
Vital Signs:
Vital Signs
Temp Pulse Resp BP Pulse Ox
98.0 F 78 20 177/84 93
05/04/25 23:00 05/04/25 23:00 05/04/25 23:00 05/04/25 23:00 05/04/25 23:00
I&O
05/04/25 05/05/25 05/06/25
06:59 06:59 06:59
Intake Total 1440 / 1440
Output Total 375 / 375 525 / 525
Balance -375 / -375 915 / 915
[2025-05-05 07:17] LABS: Blood Urea Nitrogen 16 mg/dl (9-20); Calcium 8.7 mg/dl (8.4-10.2); Carbon Dioxide 25 mmol/L (22-30); Chloride 109 mmol/L (98-107); Estimated Creatinine Clearance 55 ml/min; Glucose 115 mg/dl (70-99); Magnesium 2.0 mg/dl (1.6-2.3); Potassium 4.2 mmol/L (3.5-5.1); Sodium 138 mmol/L (135-145); eGFR > 60.00
[2025-05-05 07:44] LABS: Hematocrit 35.6 % (39.0-52.0); Hemoglobin 12.3 g/dL (13.0-18.0); Mean Corp Hgb Conc. 34.6 g/dL (33.0-37.0); Mean Corpuscular Volume 94.7 fL (80.0-94.0); Platelet Count 210 10^3/uL (130-400); Red Cell Dist. Width 13.0 % (11.5-14.5)
[2025-05-05] MEDS: VITAMIN C 500 MG PO (08:45)
[2025-05-05] MEDS: VITAMIN B-12 500 MCG PO (08:45)
[2025-05-05] MEDS: THERAGRAN 1 TABLET PO (08:45)
[2025-05-05] MEDS: OSCAL CAL 500 500 MG PO (08:45)
[2025-05-05] MEDS: VITAMIN D3 (cholecalciferol) 25 MCG PO (08:47)
[2025-05-05] MEDS: NORVASC 5 MG PO (08:47)
[2025-05-05] MEDS: NAMENDA 10 MG PO ×2 (08:53→21:14)
--- NOTE | 2025-05-05 11:00 | PTCARENOTE ---
pt c/o lightheadedness/dizziness while sitting oob in chair and requested to go back to bed. abd binder was on while sitting oob in chair, vss, EKG was ordered and done as requested by Dr. Khan. after he rounded on him, which showed T WAVE
ABNORMALITY, CONSIDER LATERAL ISCHEMIA
ABNORMAL ECG WHEN COMPARED WITH ECG OF 01-May-2025 08:26, T WAVE INVERSION NOW EVIDENT IN ANTERIOR LEADS, will continue to monitor.
--- NOTE | 2025-05-05 14:43 | CM ---
Addendum entered by Laury Olson 05/06/25 12:01:
[facility] auth# [id number]
Addendum entered by Laury Olson 05/06/25 11:51:
CM contacted Mercedes Chen at [facility] to check bed availability for transfer today. Bed is available. CM to arrange transport via ambulance.
[facility] contacts:
Report: [phone]

Original Note:
SNF authorization for transfer to [facility] approved for start of care today. CM contacted Dr. Khan who advised anticipated discharge tomorrow.
Mercedes Chen updated regarding same.
Plan: CM to follow up in AM with [facility] regarding bed availability.
[2025-05-05 15:00] VITALS: BP 159/70
[2025-05-05] MEDS: LOVENOX 40 MG SC (17:31)
[2025-05-05] MEDS: NON-FORMULARY ITEM 1 MG PO (17:31)
[2025-05-05 23:14] VITALS: BP 142/78
[2025-05-06 06:35] LABS: Hematocrit 38.9 % (39.0-52.0); Hemoglobin 13.0 g/dL (13.0-18.0); Mean Corp Hgb Conc. 33.4 g/dL (33.0-37.0); Mean Corpuscular Volume 95.6 fL (80.0-94.0); Platelet Count 218 10^3/uL (130-400); Red Cell Dist. Width 13.2 % (11.5-14.5)
[2025-05-06 06:59] LABS: Blood Urea Nitrogen 16 mg/dl (9-20); Calcium 8.9 mg/dl (8.4-10.2); Carbon Dioxide 26 mmol/L (22-30); Chloride 107 mmol/L (98-107); Estimated Creatinine Clearance 49 ml/min; Glucose 107 mg/dl (70-99); Magnesium 2.0 mg/dl (1.6-2.3); Potassium 4.2 mmol/L (3.5-5.1); Sodium 139 mmol/L (135-145); eGFR > 60.00
[2025-05-06 07:30] LABS: Cortisol, Random 11.2 ug/dl
[2025-05-06] MEDS: VITAMIN C 500 MG PO (08:43)
[2025-05-06] MEDS: OSCAL CAL 500 500 MG PO (08:44)
[2025-05-06] MEDS: VITAMIN D3 (cholecalciferol) 25 MCG PO (08:44)
[2025-05-06] MEDS: VITAMIN B-12 500 MCG PO (08:44)
[2025-05-06] MEDS: NAMENDA 10 MG PO (08:46)
[2025-05-06] MEDS: THERAGRAN 1 TABLET PO (08:46)
[2025-05-06 08:48] VITALS: BP 121/79
[2025-05-06 11:44] VITALS: BP 145/92; BP 157/86; BP 165/70; PULSE 65; PULSE 66; PULSE 84
--- NOTE | 2025-05-06 12:04 | CM ---
Pt accepted for transfer to [facility] today; bed is available. Ambulance transport to be arranged.
[facility] auth# [id number]
[facility] contacts:
Report: [phone]
[2025-05-06 13:06] VITALS: BP 146/74
--- NOTE | 2025-05-06 14:45 | W.PN.HOSP.TC ---
Today's Communication/Plan
-
d/c to OR(snf rehab)
Assessment / Plan
Assessment / Plan
89M pAfib Eliquis , essential HTN, HLD Dementia Daily ETOH use (1 can of beer per day) no hx withdrawal AOx2 baseline p/w progressive ambulatory dysfunction 48H w falls, unwitnessed, denies head trauma, prompted to visit ED when patient was unable
to get up on his own. Urinalysis suggests UTI though patient denies urinary symptoms.
#Progressive Ambulatory Dysfunction/Falls
#Possible UTI ruled out
#Symptomatic Orthostatic Hypotension
Med/surg admit d/t persistent symptomatic orthostatic hypotension
urine culture no significant growth noted, empiric ceftriaxone discontinued
PT/OT eval appreciated SNF rehab
monitor orthostatic vitals BID
Abd Binder, TEDs, IVF bolus prn
Orthostatic hypotension persists, physical deconditioning likely contributing
AM cortisol checked today and WNL.
#Abnormal EKG 05/05/25 NSR but new T wave abn's lateral leads
chest pain free
follow up AM EKG for changes/stability
#Parox Afib
Currently NSR
not on rate control medication at home
can resume eliquis at discharge, will need to f/u with primary cardiology for risk/benefit assessment if have recurrent fall issues.
#Alcohol use disorder
no withdrawal
ETOH cessation/abstinence advised
#HTN
with orthostatic hypotension, liberal approach is warranted,
#HLD
cont home statin
#Dementia
cont home Memantine
Serqoquel started for night time behavioral issues but discontinued for concern of worsening orthostatic hypotension,
1:1 prn, avoid restraints, avoid sedatives as possible (all sedatives may exacerbate orthostatic hypotension)
DVT ppx Lovenox
DNR
More than 30 minutes spent in discharge including
Final examination of the patient
Summarizing hospital stay
Instructions for continuing care to all relevant caregivers
Preparation of discharge records, prescriptions, and referral forms
Total time spent (in minutes): 39 mins
Anticipated Discharge: Today
Subjective/Interval History
-
Date of Service: May 06, 2025
no behavioral issues overnight
no reported episode of orthostasis
Objective Data
-
Labs:
Laboratory Results
05/06/25
06:03
WBC 5.4
Hgb 13.0
Hct 38.9 L
Plt Count 218
Sodium 139
Potassium 4.2
Chloride 107
Carbon Dioxide 26
BUN 16
Creatinine 1.0
Glucose 107 H
Calcium 8.9
Vital Signs:
Vital Signs
Temp Pulse Resp BP Pulse Ox
97.7 F 76 14 146/74 93
05/06/25 13:06 05/06/25 13:06 05/06/25 13:06 05/06/25 13:06 05/06/25 13:06
I&O
05/05/25 05/06/25 05/07/25
06:59 06:59 06:59
Intake Total 1440 / 1440 480 / 480
Output Total 525 / 525 725 / 725
Balance 915 / 915 -245 / -245
Review of Systems
-
Respiratory: Reports No Symptoms
Cardiac: Reports No Symptoms
Abdomen/GI: Reports No Symptoms
Physical Exam
-
General: No Apparent Distress and Comfortable
HEENT: Negative Oxygen
Respiratory: Clear to Auscultation
Cardiac: Regular Rhythm and S1/S2; Negative Murmur or Rub
GI: Soft, Nontender and Nondistended
Musculoskeletal: No Edema
Neuro: Awake, Alert, Oriented, No Motor Deficits and Nonfocal/Grossly Intact
Psych: Calm
--- NOTE | 2025-05-07 08:23 | W.DCSUMMARY ---
Discharge Summary
Discharge Data
Date of Admission: 05/02/25
Date of Discharge: 05/06/25
-
Pending Results: No
Hospital Course
Discharging Physician : Dr Boris Carpio
Disposition : SNF rehab
Primary care physician : Dr Chu Saha
Principal Discharge diagnosis :
Ambulatory dysfunction
Orthostatic hypotension
Dementia with behavioral issues
Chronic Discharge diagnosis :
Alcohol use disorder
Paroxysmal atrial fibrillation
Essential hypertension
Hyperlipidemia
Hospital Course :
Patient is a 89-year-old male with mentioned past medical history was brought into ER for having new onset of worsening ambulatory dysfunction with falls. In ER patient was unable to get out of bed without significant assistance. Patient on
evaluation was diagnosed to having possible urinary tract infection was started on empiric antibiotic although later this was ruled out. Patient was also noted to having symptomatic orthostatic hypotension which was felt to be likely from
medication use for behavioral issues. Patient had improvement in orthostasis with IV hydration and use of lower extremity compression devices. Patient has history of memory issues and required antipsychotics to be given for behavioral problems.
This was able to be taken off before discharge. Post medical stabilization patient was discharged to nursing home facility for rehab
Important imaging findings :
None
Procedure findings :
None
Discharge Plan
-
Patient Disposition: Snf/SNF
Discharge Diagnosis/Procedures: Ambulatory dysfunction, orthostatic hypotension
Condition: Fair
Diet: Regular
Activity: As tolerated
Driving Restrictions: No driving
Bathing Restrictions: OK to Shower
Other Services: PT and OT
Activity Restrictions/Additional Instructions:
Compression stockings during day time to limit orthostatic hypotension
Referrals:
Sher Ortega MD [Family Provider, Family Practice] - in one week
Prescriptions:
Continued
vitamin B complex Tablet Extended Release
1 tab PO DAILY
lovastatin 40 mg tablet
40 mg PO QPM
therapeutic multivitamin Tablet
1 tab PO DAILY
cyanocobalamin (vitamin B-12) 500 mcg Tablet
500 mcg PO DAILY
calcium carbonate 500 mg calcium (1,250 mg) Tablet
500 mg PO DAILY
ascorbic acid (vitamin C) 500 mg Tablet
500 mg PO DAILY
magnesium oxide 500 mg magnesium Tablet
500 mg PO HSPRN PRN (Reason: sleep)
memantine 10 mg tablet
10 mg PO BID
cholecalciferol (vitamin D3) 25 mcg (1,000 unit) Tablet
25 mcg PO DAILY
coenzyme Q10 100 mg Tablet
100 mg PO DAILY
lutein 20 mg Tablet
20 mg PO DAILY
Eliquis 5 mg Tablet
5 mg PO BID
Patient Comments:
[facility]
turmeric-turmeric ext-pepper 500-3 mg Capsule
1 cap PO DAILY
Discharge Orders:
Discharge Patient (As Directed); Ordered 05/06/25
Ordered By: Boris aCrpio
Discharge Date and Time
Discharge Date/Time: 05/06/25 14:56
Print Language: [place] CITIZ[place]
== END 2025-05-06 14:56 | DRG 312 ==
LOC: 3 WEST ACU 14:05
PROVIDERS: Physician Assistant; ADMITTING PHYSICIAN Internal Medicine; ATTENDING PHYSICIAN Hospitalist; EMERGENCY PHYSICIAN Emergency Medicine; FAMILY PHYSICIAN Family Medicine
DX: I95.1 Orthostatic hypotension (principal); F03.918 Unspecified dementia, unspecified severity, with other behavioral disturbance; R29.6 Repeated falls; I10 Essential (primary) hypertension; E78.00 Pure hypercholesterolemia, unspecified; G47.00 Insomnia, unspecified; I48.0 Paroxysmal atrial fibrillation; F10.10 Alcohol abuse, uncomplicated; H91.90 Unspecified hearing loss, unspecified ear; Z66 Do not resuscitate; Z85.46 Personal history of malignant neoplasm of prostate; Z85.828 Personal history of other malignant neoplasm of skin; Z79.01 Long term (current) use of anticoagulants; Z91.018 Allergy to other foods
CPT/HCPCS: 70450; 80048; 80053; 81003; 81015; 82306; 82533; 82607; 82746; 83735; 84100; 84443; 85025; 85027; 86850; 86900; 86901; 87086; 93005; 93970; 96374; 97163; 97167; 97530; 97535; 99285

== ENCOUNTER → 2025-05-09 11:31 | Outpatient (REF) | payer OTHER, SELFPAY ==
[2025-05-09 12:07] LABS: Hematocrit 35.7 % (39.0-52.0); Hemoglobin 12.0 g/dL (13.0-18.0); Mean Corp Hgb Conc. 33.6 g/dL (33.0-37.0); Mean Corpuscular Volume 97.0 fL (80.0-94.0); Nucleated Red Blood Cells % 0 % (-); Platelet Count 226 10^3/uL (130-400); Red Cell Dist. Width 13.5 % (11.5-14.5)
[2025-05-09 12:14] LABS: Blood Urea Nitrogen 22 mg/dl (9-20); Calcium 8.9 mg/dl (8.4-10.2); Carbon Dioxide 26 mmol/L (22-30); Chloride 108 mmol/L (98-107); Glucose 100 mg/dl (70-99); Potassium 4.3 mmol/L (3.5-5.1); Sodium 139 mmol/L (135-145); eGFR > 60.00
== END ==
LOC: OLABP 11:31
PROVIDERS: ATTENDING PHYSICIAN Family Medicine
DX: R29.6 Repeated falls (principal); I95.1 Orthostatic hypotension; W19.XXXD Unspecified fall, subsequent encounter
CPT/HCPCS: 36415; 80048; 85025

== ENCOUNTER → 2025-05-26 09:29 | Outpatient (REF) | payer OTHER, SELFPAY ==
[2025-05-26 11:50] LABS: Hematocrit 39.8 % (39.0-52.0); Hemoglobin 13.3 g/dL (13.0-18.0); Mean Corp Hgb Conc. 33.4 g/dL (33.0-37.0); Mean Corpuscular Volume 96.1 fL (80.0-94.0); Platelet Count 240 10^3/uL (130-400); Red Cell Dist. Width 13.7 % (11.5-14.5)
[2025-05-26 11:56] LABS: ALT (SGPT) 47 U/L (0-50); AST (SGOT) 40 U/L (17-59); Albumin 4.2 g/dl (3.5-5.0); Alkaline Phosphatase 57 U/L (38-126); Blood Urea Nitrogen 18 mg/dl (9-20); Calcium 9.4 mg/dl (8.4-10.2); Carbon Dioxide 29 mmol/L (22-30); Chloride 105 mmol/L (98-107); Glucose 100 mg/dl (70-99); Potassium 4.4 mmol/L (3.5-5.1); Sodium 139 mmol/L (135-145); Total Protein 6.8 g/dl (6.3-8.2); eGFR > 60.00
[2025-05-26 17:13] LABS: Urine Character Clear (Clear)
== END ==
LOC: OLABPATH 09:29
PROVIDERS: ATTENDING PHYSICIAN Internal Medicine
DX: E78.5 Hyperlipidemia, unspecified (principal); I48.0 Paroxysmal atrial fibrillation
CPT/HCPCS: 36415; 80053; 81003; 85027